=== PATIENT | male | born 2000 | race Caucasian/White ===

== ENCOUNTER 2020-07-04 17:54 | Emergency (ER) | payer OTHER ==
[2020-07-04 19:41] LABS: ABSOLUTE LYMPHOCYTES (AUTO) 1.1 10^3/uL (0.5-4.7); ABSOLUTE MONOCYTES (AUTO) 0.3 10^3/uL (0.1-1.4); MONOCYTES % (AUTO) 4.9 % (3-13); TOTAL CELLS COUNTED % (AUTO) 100 %
[2020-07-04 19:48] LABS: ABSOLUTE NEUT (AUTO) 4.7 10^3/uL (1.7-8.2); BASOPHILS % (AUTO) 0.3 % (0-2); EOSINOPHILS % (AUTO) 0.2 % (0-6); HEMATOCRIT 42.2 % (37.9-51.0); HEMOGLOBIN 14.6 g/dL (13.5-17.0); LYMPHOCYTES % (AUTO) 18.1 % (13-45); MEAN CORPUSCULAR HEMOGLOBIN 29.4 pg (27.0-33.4); MEAN CORPUSCULAR HGB CONC 34.5 g/dL (32.0-36.0); MEAN CORPUSCULAR VOLUME 85 fl (80-97); PLATELET COUNT 135 10^3/uL (150-450); RED BLOOD COUNT 4.96 10^6/uL (4.35-5.55); RED CELL DISTRIBUTION WIDTH 13.1 % (11.5-14.0); SEGMENTED NEUTROPHILS % (AUTO) 76.5 % (42-78); WHITE BLOOD COUNT 6.2 10^3/uL (4.0-10.5)
[2020-07-04 19:50] LABS: ALBUMIN 3.9 g/dL (3.5-5.0); ALKALINE PHOSPHATASE 68 U/L (38-126); ANION GAP 8 (5-19); ASPARTATE AMINO TRANSFERASE 59 U/L (17-59); BILIRUBIN,DIRECT 0.3 mg/dL (0.0-0.4); BILIRUBIN,TOTAL 0.5 mg/dL (0.2-1.3); BLOOD UREA NITROGEN 12 mg/dL (7-20); CALCIUM 8.5 mg/dL (8.4-10.2); CARBON DIOXIDE 26 mmol/L (22-30); CHLORIDE 105 mmol/L (98-107); GLUCOSE 109 mg/dL (75-110); TOTAL PROTEIN 6.9 g/dL (6.3-8.2)
[2020-07-04] MEDS ORDERED: KETOROLAC TROMETHAMINE INJ/PF 30 MG/1 ML SDV IV ONE (21:16)
[2020-07-04] MEDS ORDERED: ACETAMINOPHEN 325 MG TABLET PO ONE (21:16)
[2020-07-04] MEDS ORDERED: NORMAL SALINE 1000 ML 1,000 ML IV ONE (21:16)
--- NOTE | 2020-07-04 21:18 | ER Document Report ---
ED General - General Chief Complaint: Nausea/Vomiting/Diarrhea Stated Complaint: FEVER Time Seen by Provider: 07/04/20 20:14 Notes: Patient is a 20-year-old male that comes emergency department for chief complaint of 6 days of illness. He states that he started with chills and fever, he states that he developed a sore throat, cough, vomiting, diarrhea, generalized body aches. He states he vomited 6 times today and felt like he could not keep anything down so he came in by EMS. He is active duty. He denies any obvious sick contacts. He denies neck stiffness, inability to swallow, chest pain, headache. He denies any surgeries, daily medications, denies smoking, denies recreational drugs. - Related Data Allergies/Adverse Reactions: No Known Allergies Allergy (Verified 07/04/20 17:56) Past Medical History - General Information source: Patient - Social History Smoking Status: Never Smoker Drug Abuse: None Lives with: Family Family History: Reviewed & Not Pertinent Patient has homicidal ideation: No - Medical History Medical History: Negative - Immunizations Hx Diphtheria, Pertussis, Tetanus Vaccination: Yes Review of Systems - Review of Systems Constitutional: See HPI EENT: See HPI Cardiovascular: No symptoms reported Respiratory: See HPI Gastrointestinal: See HPI Genitourinary: No symptoms reported Male Genitourinary: No symptoms reported Musculoskeletal: No symptoms reported Skin: No symptoms reported Hematologic/Lymphatic: No symptoms reported Neurological/Psychological: No symptoms reported Physical Exam - Vital signs Vitals: Temp Pulse Resp BP Pulse Ox 102.7 F H 110 H 22 H 139/77 H 99 07/04/20 18:00 07/04/20 18:00 07/04/20 18:00 07/04/20 18:00 07/04/20 18:00 - Notes Notes: GENERAL: Alert, interacts well. No acute distress. HEAD: Normocephalic, atraumatic. EYES: Pupils equal, round, and reactive to light. Extraocular movements intact. ENT: Oral mucosa moist, tongue midline. There is erythema of the posterior pharynx and mild tonsillitis bilaterally, no exudates, no abscess, unremarkable uvula, airway patent. Nares patent, sinuses non-tender, ear canals unremarkable, TM's intact. NECK: Full range of motion. Supple. Trachea midline. No lymphadenopathy. LUNGS: Clear to auscultation bilaterally, no wheezes, rales, or rhonchi. No respiratory distress. Non-tender chest wall. Occasional nonproductive coughing episodes. HEART: Tachycardia, normal rhythm, no murmur ABDOMEN: Soft benign abdomen with no guarding, distention, or rigidity EXTREMITIES: Moves all 4 extremities spontaneously. No edema, normal radial and dorsalis pedis pulses bilaterally. No cyanosis. BACK: no cervical, thoracic, lumbar midline tenderness. No saddle anesthesia, normal distal neurovascular exam. Moves all extremities in full range of motion. NEUROLOGICAL: Alert and oriented x3. Normal speech. Cranial nerves II through XII grossly intact. Strength 5/5 in all extremities. PSYCH: Normal affect, normal mood. SKIN: Flushed Course - Re-evaluation Re-evalutation: Patient is tachycardic, febrile, however he is alert and well-appearing otherwise. He has clear lungs, soft abdomen. He does have erythema the posterior pharynx and some mild tonsillitis without exudates. He does have frequent coughing episodes but he has no respiratory distress. He is not hypoxic or hypotensive. CBC unremarkable except for mild thrombocytopenia, chemistry nonspecific, urinalysis unremarkable other than elevated specific gravity, chest x-ray unremarkable. Strep is negative. Patient has already been tested for COVID-19 yesterday and is pending results. Based on his evaluation I strongly suspect this is the cause of his symptoms. Discussed options with patient. Patient is now tolerating p.o. after hydration and antinausea medication, he states he feels much better and he is ready to go home. Vital signs significantly improved on recheck. Patient was given dexamethasone for his pharyngitis and cough, he was provided with nausea medication, discussed follow-up, quarantine, return precautions. Patient states understanding and agreement. Stable and well-appearing at time of discharge. - Vital Signs Vital signs: Temp Pulse Resp BP Pulse Ox 100.0 F 110 H 33 H 136/75 H 95 07/05/20 00:01 07/04/20 18:00 07/05/20 00:01 07/05/20 00:01 07/05/20 00:01 - Laboratory Result Diagrams: 07/04/20 18:02 07/04/20 18:02 Laboratory results interpreted by me: 07/04/20 07/04/20 07/04/20 18:02 18:02 22:25 Plt Count 135 L ALT 79 H Urine Protein 100 H Urine Ketones 20 H Urine Urobilinogen 2.0 H Discharge - Discharge Clinical Impression: Dehydration, Cough, Person under investigation for COVID-19 Nausea and vomiting Qualifiers: Vomiting type: unspecified Vomiting Intractability: non-intractable Qualified Code(s): R11.2 - Nausea with vomiting, unspecified Fever Qualifiers: Fever type: unspecified Qualified Code(s): R50.9 - Fever, unspecified Pharyngitis Qualifiers: Pharyngitis/tonsillitis etiology: unspecified etiology Qualified Code(s): J02.9 - Acute pharyngitis, unspecified Condition: Stable Disposition: HOME, SELF-CARE Additional Instructions: Your chest x-ray does not show pneumonia, your strep test is negative, your overall work-up shows dehydration but no other concerning findings. This is most likely viral and should simply go away with time. It is very possible that you have COVID-19, please quarantine while awaiting your test results. Take Zofran for nausea if needed, take Tylenol and ibuprofen for pain/fever/chills, drink plenty of fluids, rest. See additional instructions below. Return for any concerning symptoms including difficulty breathing, uncontrolled vomiting, severe worsening abdominal pain, inability to swallow, or any other concerning symptoms. As a person under investigation for COVID-19, the [place] Department of Health and Human Services (division on public health) advises you to adhere to the following guidance until your test results are reported to you. If your test result is positive, you will receive additional information from your provider and your local health department at that time. Remain at home until you are cleared by the health provider or public health authorities. Keep a log of visitors to your home, notify any visitors to your home of your isolation status. If you plan to move to a new address or leave the [facility], notify the local health department in your County. Call your Doctor or seek care if you have an urgent medical need. Before seeking medical care, call him to get instructions from the provider before arriving at the medical office, clinic, or hospital. Notify them that you are being tested for the virus (COVID-19) so that arrangements can be made, as necessary, to prevent transmission to others in the healthcare setting. Next, notify the local health department in your county. If a medical emergency arises and you need to call 911, inform the first responders that you are being tested for the virus that causes COVID-19. Next, notify the local health department in your county. Prescriptions: Ondansetron [Zofran Odt 4 mg Tablet] 1 - 2 tab PO Q4H PRN #15 tab.rapdis PRN Reason: For Nausea/Vomiting Forms: Return to Work
--- NOTE | 2020-07-04 21:55 | RADIOLOGY REPORT (SQ) ---
EXAM DESCRIPTION: XR CHEST 1 VIEW COMPLETED DATE/TME: 07/04/2020 21:16 CLINICAL HISTORY: 20 years, Male, persistent cough, fever Comparison: None FINDINGS: No focal lung consolidation. No pleural effusion. No pneumothorax. Cardiac and mediastinal silhouette is unremarkable. No acute osseous abnormality. Soft tissues are unremarkable. IMPRESSION: No acute findings. No focal lung consolidation.
[2020-07-04 22:38] LABS: APPEARANCE,URINE CLEAR; BILIRUBIN,URINE NEGATIVE (NEGATIVE); COLOR,URINE YELLOW; GLUCOSE, URINE NEGATIVE (NEGATIVE); KETONES,URINE 20 mg/dL (NEGATIVE); LEUKOCYTE ESTERASE,URINE NEGATIVE (NEGATIVE); NITRITE,URINE NEGATIVE (NEGATIVE); PROTEIN,URINE 100 mg/dL (NEGATIVE); URINE SPECIFIC GRAVITY 1.023
[2020-07-04] MEDS ORDERED: DEXAMETHASONE SOD PHOS INJ 10 MG/1 ML VIAL IV ONE (23:34)
[2020-07-04] MEDS ORDERED: ONDANSETRON ODT 4 MG TAB (6 TAB/ER DISP) PO PRN (23:34)
[2020-07-05 00:25] VITALS: BP 136/75
== END 2020-07-05 00:25 | disposition home or self-care (01) ==
LOC: ER 17:54
DX: J02.9 Acute pharyngitis, unspecified (principal); Z20.828 Contact with and (suspected) exposure to other viral communicable diseases; E86.0 Dehydration; R11.2 Nausea with vomiting, unspecified; R19.7 Diarrhea, unspecified; R50.9 Fever, unspecified; R05 Cough
CPT/HCPCS: 99284; 96361; 96374; 96375; 36415; 87040; 87070; 87880; 85025; 87077; 80053; 81001; 87186; 87150 ×26; 71045; J1885; J7030; J1100